=== PATIENT | female | born 1960 | race Caucasian/White ===

== ENCOUNTER 2021-02-14 07:54 | Day surgery (SDC) | payer OTHER ==
[~2021-02-14] VITALS: Ht 172.7 cm; Wt 85.3 kg
[~2021-02-14 07:54] MED LIST: ASCO500 PO; ASPI81CH PO; CALCIUM; CALMAGZIN PO; CELE100 PO; CIPR500 PO; CITA20 PO; CVS GLUCOSAMIN PO; DIPATR PO; ERGO400 PO; GINKGO BILOBA120 MG PO; GLUCHON PO; MELO7.5 PO; Multivitamin1 EAC1 PO; Prinivil10 MG PO; RANI150 PO; RXDIPATR PO; St. John's Wor300 MG PO; TUMS; VITAMIN C; VITAMIN D; [UNRECOGNIZED DRUG - OTHER] MC
[2021-02-14] MEDS ORDERED: OMEP20ER (08:14)
[2021-02-14] MEDS ORDERED: MAGNESIUM OXID500 MG (08:15)
[2021-02-14] MEDS ORDERED: PROG100 (08:15)
[2021-02-14] MEDS ORDERED: CONEST1.25 (08:15)
--- NOTE | 2021-02-14 08:26 | NUR ---
02/14/21 0826 Kathy Perez FIRST ATTEMPT MISSED BY KAJAL IN THE RIGHT HAND. SECOND ATTEMPT SUCCESSFUL BY RN IN RIGHT HAND. PT BRYAN.
== END 2021-02-14 09:48 | disposition home or self-care (01) ==
LOC: ORSCSDS 07:54
PROVIDERS: Internal Medicine Gastroenterology
PROC: 0DBM8ZX Excision of Descending Colon, Via Natural or Artificial Opening Endoscopic, Diagnostic (ICD-10-PCS; principal; 2021-02-14 09:00)
DX: Z12.11 Encounter for screening for malignant neoplasm of colon (principal); Z86.010 Personal history of colon polyps; Z80.0 Family history of malignant neoplasm of digestive organs; D12.4 Benign neoplasm of descending colon; K57.30 Diverticulosis of large intestine without perforation or abscess without bleeding; K21.9 Gastro-esophageal reflux disease without esophagitis; Z87.891 Personal history of nicotine dependence; Z79.899 Other long term (current) drug therapy
CPT/HCPCS: 88305; J0330; J0461; J2405; J2704; J7120